=== PATIENT | male | born 1985 | race Caucasian/White ===

== ENCOUNTER 2024-01-25 17:01 | Emergency (ER) | payer OTHER, SELFPAY ==
[2024-01-25 17:08] VITALS: BP 187/98
[2024-01-25 17:11] VITALS: BMI 27.5
--- NOTE | 2024-01-25 17:33 | ED.GENMED ---
History of Present Illness
General
Chief Complaint: Withdrawal Symptoms
Source: patient
Exam Limitations: none
Time Seen by Provider: 01/25/24 17:14
Nursing documentation reviewed up to this point in time: agreed with
History of Present Illness
History of Present Illness:
38-year-old presented presenting to the emergency department today with concerns of continuous vomiting shakiness fatigue lightheadedness in setting of abrupt cessation of alcohol use, 12 beers per day for many years as well as abrupt cessation of
fentanyl use where he snorted in bags daily up until 2 days ago. He has been on clonazepam at the residential to help with alcohol withdrawal but has not received any buprenorphine. 9 denies any known histories of previous seizure or delirium tremens
from alcohol withdrawal. Denies being on buprenorphine or methadone in the past. Denies specific chest pain. Has had some cough.
Review of Systems
Review of Systems
Allergies reviewed?: Yes
All Other Systems: ROS reviewed and negative except as documented in HPI and ROS
Phy Exam
Physical Exam
Physical Exam:
GENERAL: Alert , appears somewhat uncomfortable
EYE: pupils equal and reactive
NECK: Supple, no significant adenopathy.
ENT: o/p clr, mmm.
CARDIAC: Regular rate and rhythm .
LUNGS: Clear breath sounds bilaterally, no acute respiratory distress, no wheezes/rales/rhonchi
ABDOMEN: Soft, without focal tenderness, no r/g, no cvat
NEUROLOGICAL: Alert and oriented, no focal neuro deficits
SKIN: Warm and dry, skin intact.
MUSCULOSKELETAL: No edema, well perfused.
PSYCH: Normal and appropriate interaction.
Course
Orders/Labs/Results
Orders:
Orders
01/25/24 17:20
Complete Blood Count/With Diff Urgent
Comprehensive Metabolic Panel Urgent
01/25/24 17:31
EKG [Electrocardiogram (*1)] Urgent
Reason for Study: Fatigue / Weakness
0.9% Sodium Chloride 1000 ml [Nss] 1,000 ml IV BOLUS
Buprenorphine [Subutex] 8 mg SL ONCE ONE
Lorazepam [Ativan] 1 mg IV NOW STA
Chest [CR Chest - 2 Views ] Urgent
Comment:
Reason For Exam: sob, cough
01/25/24 17:32
EKG- Treatment ONCE
01/25/24 19:11
Buprenorphine [Subutex] 8 mg SL NOW ONE
Clonidine [Catapres] 0.3 mg PO NOW STA
Ondansetron Injectable [Zofran] 4 mg IV NOW STA
01/25/24 19:12
Lorazepam [Ativan] 1 mg IV NOW STA
Abnormal Lab Results
01/25/24
17:20
WBC 13.1 H 10^3/uL
(4.8-10.8)
Plt Count 407 H 10^3/uL
(130-400)
Absolute Neuts (auto) 10.6 H 10^3/uL
(1.4-6.5)
Absolute Monos (auto) 0.9 H 10^3/uL
(0.1-0.6)
Neutrophils % 81.4 H %
(42.2-75.2)
Lymphocytes % 11.3 L %
(20.5-51.1)
Glucose 117 H mg/dl
(70-99)
01/25/24 17:20
01/25/24 17:20
Vital Signs
Initial and Last Documented VS:
Initial Vital Signs
Pulse Resp
107 15
01/25/24 17:07 01/25/24 17:07
Last Documented Vital Signs
Pulse Resp BP Pulse Ox
86 17 159/105 100
01/25/24 20:30 01/25/24 20:30 01/25/24 19:38 01/25/24 20:00
MDM/Problems Addressed
MDM/Problems Addressed:
38-year-old male presenting from the residential with concerns of multiple symptoms likely consistent with opioid and alcohol withdrawal. Abruptly stopped these 2 days ago when incarcerated. Patient was given 2 dose of buprenorphine 2 doses of Ativan
and Zofran with significant improvement of symptoms. Initially tachycardic but heart rate improving after was given a liter of fluid labs without emergent findings chest x-ray without evidence of pneumonia otherwise patient stable for continued
monitoring at the residential. Return precautions given.
*Critical Care Note
Total Time (30-74mins, 75-104mins- exclusive of procedures): Not Applicable
ED Attending Note
-
Portions of this chart may have been created with voice recognition software.� Occasional wrong word or��sound alike� substitutions may have occurred due to the inherent limitations of voice recognition software.
Discharge Plan
Departure
Patient Disposition: Home (Routine Discharge)
Date of Disposition: 01/25/24
Time of Disposition: 20:48
Patient with high blood pressure during this ER visit?: No
Condition: Good
Covid-19: Not Applicable
Discharge Problem:
Acute opioid withdrawal, Alcohol withdrawal
Instructions: Alcohol Withdrawal (DC), Polysubstance Use Disorder (DC)
Prescriptions:
New
buprenorphine-naloxone [Suboxone] 8-2 mg film
2 film buccal DAILY 3 Days Qty: 30 0RF
Referrals:
[facility] [Family Provider] -
Activity Restrictions/Additional Instructions:
Bautista Came to the emergency department today with concerns of symptoms all consistent with his opioid and alcohol withdrawal.. Improvement of symptoms with buprenorphine as well as Ativan. He will need continued benzodiazepine taper for alcohol
withdrawal and he will also need ongoing treatment with buprenorphine likely 16 to 24 mg daily. Otherwise he should return for any worsening, new or concerning symptoms.
Interventions
Interventions:
*General Assessment Last Done: 01/25/24 17:46
*ED COVID-19 Vaccine History Last Done: 01/25/24 17:46
ED- Neurological Assessment Last Done: 01/25/24 17:46
ED-Psychological Assessment Last Done: 01/25/24 17:46
Discharge Date and Time
Print Language: CHINESE
[2024-01-25 17:35] LABS: % Basophils 0.3 % (0-2); % Immature Granulocytes 0.2 % (0-0.5); % Lymphocytes 11.3 % (20.5-51.1); % Monocytes 6.8 % (1.7-9.3); % Neutrophils 81.4 % (42.2-75.2); Absolute Lymphocytes 1.5 10^3/uL (1.2-3.4); Absolute Monocytes 0.9 10^3/uL (0.1-0.6); Absolute Neutrophils 10.6 10^3/uL (1.4-6.5); Hematocrit 40.1 % (39.0-52.0); Hemoglobin 13.6 g/dL (13.0-18.0); Mean Corp Hgb Conc. 33.9 g/dL (33.0-37.0); Mean Corpuscular Hgb 28.7 pg (27.0-31.0); Mean Corpuscular Volume 84.6 fL (80.0-94.0); Mean Platelet Volume 8.9 fL (7.4-10.4); Nucleated Red Blood Cells % 0 % (-); Platelet Count 407 10^3/uL (130-400); Red Blood Cell Count 4.74 10^6/uL (4.70-6.10); Red Cell Dist. Width 12.7 % (11.5-14.5); White Blood Cell Count 13.1 10^3/uL (4.8-10.8)
[2024-01-25] MEDS: SUBUTEX 8 MG SL ×2 (17:56→19:41)
[2024-01-25 17:57] LABS: ALT (SGPT) 18 U/L (0-50); AST (SGOT) 39 U/L (17-59); Alkaline Phosphatase 107 U/L (38-126); Blood Urea Nitrogen 14 mg/dl (9-20); Calcium 9.3 mg/dl (8.4-10.2); Carbon Dioxide 28 mmol/L (22-30); Chloride 103 mmol/L (98-107); Estimated Creatinine Clearance 87 ml/min; Glucose 117 mg/dl (70-99); Potassium 3.8 mmol/L (3.5-5.1); Sodium 141 mmol/L (135-145); Total Bilirubin 0.3 mg/dl (0.2-1.3); Total Protein 6.8 g/dl (6.3-8.2); eGFR > 60.00
[2024-01-25] MEDS: ATIVAN 1 MG IV ×2 (17:57→19:44)
[2024-01-25 18:00] VITALS: BP 167/110
[2024-01-25] MEDS: NSS 1000 IV (18:02)
[2024-01-25] MEDS: ZOFRAN 4 MG IV (19:37)
[2024-01-25 19:38] VITALS: BP 159/105
[2024-01-25] MEDS: CATAPRES 0.3 MG PO (19:38)
== END 2024-01-25 21:15 | disposition home or self-care (01) ==
LOC: EMR 17:01
PROVIDERS: Physician Assistant; EMERGENCY PHYSICIAN Emergency Medicine
DX: F11.23 Opioid dependence with withdrawal (principal); F10.939 Alcohol use, unspecified with withdrawal, unspecified
CPT/HCPCS: 99285; 96374; 96375; 96361; 96376; 71046; 80053; 85025; 93005